=== PATIENT | female | born 1985 | race Caucasian/White ===

== ENCOUNTER 2018-08-28 09:50 | Emergency (ER) | payer MEDICAID ==
[~2018-08-28] VITALS: Ht 182.9 cm; Wt 72.5 kg
[2018-08-28 09:53] VITALS: BP 113/75
[2018-08-28] MEDS ORDERED: TRAM50TA2 PO (10:27)
== END 2018-08-28 10:43 | disposition home or self-care (01) ==
LOC: ER 09:52
DX: S92.512A Displaced fracture of proximal phalanx of left lesser toe(s), initial encounter for closed fracture (principal); F17.200 Nicotine dependence, unspecified, uncomplicated; Z98.890 Other specified postprocedural states; W22.8XXA Striking against or struck by other objects, initial encounter; Y93.89 Activity, other specified; Y92.89 Other specified places as the place of occurrence of the external cause; Y99.8 Other external cause status
CPT/HCPCS: 73660; 99283

== ENCOUNTER 2018-09-08 09:31 | Outpatient (CLI) | payer MEDICAID ==
[~2018-09-08 09:31] MED LIST: TRAM50TA2 PO
[2018-09-08 09:33] VITALS: BP 147/87
== END 2018-09-08 09:53 | disposition home or self-care (01) ==
LOC: ORTHO 09:31
PROVIDERS: ATTEND Nurse Practitioner Family
DX: S92.512A Displaced fracture of proximal phalanx of left lesser toe(s), initial encounter for closed fracture (principal); F17.200 Nicotine dependence, unspecified, uncomplicated; W22.8XXA Striking against or struck by other objects, initial encounter; Y93.89 Activity, other specified; Y92.89 Other specified places as the place of occurrence of the external cause; Y99.8 Other external cause status
CPT/HCPCS: 99213

== ENCOUNTER 2018-09-28 11:42 | Outpatient (CLI) | payer MEDICAID ==
[2018-09-28 11:40] VITALS: BP 120/86
== END 2018-09-28 12:13 | disposition home or self-care (01) ==
LOC: ORTHO 11:42
PROVIDERS: ATTEND Nurse Practitioner Family
DX: S92.512D Displaced fracture of proximal phalanx of left lesser toe(s), subsequent encounter for fracture with routine healing (principal); F17.210 Nicotine dependence, cigarettes, uncomplicated; F41.8 Other specified anxiety disorders; Z56.0 Unemployment, unspecified; X58.XXXD Exposure to other specified factors, subsequent encounter
CPT/HCPCS: 73660; 99213

== ENCOUNTER 2018-10-19 12:20 | Outpatient (CLI) | payer MEDICAID | END 2018-10-19 12:58 | disposition home or self-care (01) | LOC: ORTHO 12:20 | PROVIDERS: ATTEND Orthopaedic Surgery | DX: S92.512D Displaced fracture of proximal phalanx of left lesser toe(s), subsequent encounter for fracture with routine healing (principal); F17.200 Nicotine dependence, unspecified, uncomplicated; X58.XXXD Exposure to other specified factors, subsequent encounter | CPT/HCPCS: 73660; 99213 ==

== ENCOUNTER 2023-01-24 21:33 | Emergency (ER) | payer MEDICAID ==
[~2023-01-24] VITALS: Ht 182.9 cm; Wt 77.3 kg
[~2023-01-24 21:33] MED LIST changes: +ALBU6.7H14 INH; +GUAI1TBM19 PO; -TRAM50TA2 PO
[2023-01-24 21:42] VITALS: BP 140/78; PULSE 74; TEMP 97.9; O2SAT 98
[2023-01-24] MEDS ORDERED: HYDROcodone/acetaminophen 10/325mg tab PO ONE (23:00)
[2023-01-24] MEDS ORDERED: OXYC-150 PO (23:00)
[2023-01-24 23:02] VITALS: RESP 18
[2023-01-25] MEDS ORDERED: NAPR-996 PO (17:11)
[2023-01-25] MEDS ORDERED: AMOX-580 PO (17:11)
[2023-01-25] MEDS ORDERED: PRED10TA PO (17:11)
== END 2023-01-24 23:11 | disposition home or self-care (01) ==
LOC: ER 21:33
DX: K08.89 Other specified disorders of teeth and supporting structures (principal); Z79.899 Other long term (current) drug therapy
CPT/HCPCS: 99283

== ENCOUNTER 2023-01-25 11:44 | Emergency (ER) | payer MEDICAID ==
[~2023-01-25] VITALS: Ht 182.9 cm; Wt 75.0 kg
[~2023-01-25 11:44] MED LIST changes: +OXYC-150 PO
[2023-01-25 11:48] VITALS: TEMP 98.8
[2023-01-25] MEDS ORDERED: HYDROcodone/acetaminophen 5mg/325mg tablet PO ONE (14:10)
[2023-01-25] MEDS ORDERED: methylPREDNISolone sod succ 125mg/2ml vial IV ONE (14:10)
[2023-01-25] MEDS ORDERED: ampicillin inj 1 GM in normal saline 100ml IV soln 100 ML IV ONE (14:29)
[2023-01-25] MEDS ORDERED: iohexol 300mg/ml 100ml inj. ONE (14:36)
[2023-01-25 14:38] LABS: BASOPHILS % (AUTO) 0.2 % (0-1); EOSINOPHILS % (AUTO) 0.2 % (0-6); HEMATOCRIT 40.9 % (35.0-45.0); HEMOGLOBIN 13.7 g/dl (12.0-16.0); LYMPHOCYTES # (AUTO) 1.5 X10'3 (1.1-4.8); LYMPHOCYTES % (AUTO) 9.7 % (21-51); MEAN CORPUSCULAR HEMOGLOBIN 30.8 PG (27.0-31.0); MEAN CORPUSCULAR HGB CONC 33.5 g/dL (33.0-36.5); MEAN PLATELET VOLUME 8.7 FL (7.4-10.4); MONOCYTES # (AUTO) 0.9 X10'3 (0-0.9); MONOCYTES % (AUTO) 5.7 % (2-12); NEUTROPHILS % (AUTO) 84.2 % (42-75); PLATELET COUNT 331 X10'3 (140-440); RED BLOOD COUNT 4.45 X10'6 (4.20-5.60); RED CELL DISTRIBUTION WIDTH 13.4 % (11.5-14.5); WHITE BLOOD COUNT 15.5 X10'3 (4.5-11.0)
[2023-01-25 14:39] LABS: CLARITY,URINE CLOUDY (Clear); COLOR,URINE YELLOW (Yellow); GLUCOSE, URINE NEGATIVE (Neg); KETONES,URINE NEGATIVE (Neg); LEUKOCYTE ESTERASE ,URINE NEGATIVE (Neg); NITRITES, URINE NEGATIVE (Neg); OCCULT BLOOD,URINE LARGE (Neg); PH,URINE 7.5 (4.8-8.0); PROTEIN,URINE NEGATIVE (Neg); UROBILINOGEN,URINE 0.2 E.U/dL (0.2-1.0)
[2023-01-25 14:42] LABS: UA COLLECTION TYPE CLN CATCH MIDSTREAM
[2023-01-25 14:43] LABS: URINE HCG NEGATIVE (NEG)
[2023-01-25 14:45] LABS: BACTERIA,URINE FEW /HPF (Neg); MUCUS STRANDS FEW /LPF (Neg); RBC,URINE 0-2 /HPF (0-2); SQUAMOUS EPITHELIAL CELL,UR MANY /LPF (FEW); WBC,URINE 0-4 /HPF (0-4)
[2023-01-25 14:52] LABS: ALANINE AMINOTRANSFERASE 17 U/L (12-78); ALBUMIN/GLOBULIN RATIO 1.3 (1.1-1.5); ALKALINE PHOSPHATASE 92 IU/L (46-116); ANION GAP 7 (8-16); ASPARTATE AMINO TRANSFERASE 16 U/L (10-37); BILIRUBIN,TOTAL 0.5 MG/DL (0.1-1.0); BLOOD UREA NITROGEN 12 MG/DL (7-18); BUN/CREATININE RATIO 17.6 (10.0-20.0); CALCIUM 8.9 MG/DL (8.5-10.1); CHLORIDE 104 MMOL/L (99-107); CREATININE 0.68 MG/DL (0.40-0.90); GLUCOSE 117 MG/DL (70-104); POTASSIUM 4.1 MMOL/L (3.5-5.1); SODIUM 138 MMOL/L (135-145); TOTAL CARBON DIOXIDE 27.5 MMOL/L (24-32); TOTAL PROTEIN 7.2 G/DL (6.4-8.2); eGFR > 90 ML/MIN
[2023-01-25 16:50] VITALS: BP 108/67; PULSE 76; RESP 19; O2SAT 96
[2023-01-25] MEDS ORDERED: ampicillin inj 1 GM in normal saline 100ml IV soln 100 ML IV STA (16:58)
[2023-01-25] MEDS ORDERED: AMOX-580 PO (17:11)
[2023-01-25] MEDS ORDERED: PRED10TA PO (17:11)
[2023-01-25] MEDS ORDERED: NAPR-996 PO (17:11)
== END 2023-01-25 18:05 | disposition home or self-care (01) ==
LOC: ER 11:45
DX: K08.89 Other specified disorders of teeth and supporting structures (principal); R22.0 Localized swelling, mass and lump, head; F17.200 Nicotine dependence, unspecified, uncomplicated; Z56.0 Unemployment, unspecified; Z98.890 Other specified postprocedural states; Z79.899 Other long term (current) drug therapy
CPT/HCPCS: 36415; 70491; 80053; 81001; 81025; 84145; 85025; 96365; 96366; 96375; 99285; J0290; J2930; J3490; Q9967

== ENCOUNTER 2025-02-20 18:29 | Emergency (ER) | payer MEDICAID ==
[~2025-02-20 18:29] MED LIST changes: +NAPR-1168 PO; +PRED10TA PO
== END 2025-02-20 19:32 | disposition left against medical advice (07) ==
LOC: ER 18:30
DX: R05.9 Cough, unspecified (principal); Z53.21 Procedure and treatment not carried out due to patient leaving prior to being seen by health care provider